=== PATIENT | male | born 1980 | race Caucasian/White ===

== ENCOUNTER 2019-01-09 13:14 | Emergency (ER) | payer SELFPAY ==
[~2019-01-09] VITALS: Ht 175.3 cm; Wt 99.5 kg
[2019-01-09 13:17] VITALS: Ht 175.3 cm; Wt 99.5 kg
[2019-01-09] MEDS ORDERED: SOD CHLORIDE 0.9% 1,000 ML IV ONE (13:30)
[2019-01-09] MEDS ORDERED: DIPHTH/TET/ACEL PERTUSS (ADULT) 0.5 ML VIAL IM* ONE (13:30)
[2019-01-09 20:30] VITALS: BP 128/88; PULSE 91; RESP 18
[2019-01-09] MEDS ORDERED: IBUPROFEN 200 MG TAB ONE (20:53)
[2019-01-09] MEDS ORDERED: IBUPROFEN 200 MG TAB PO ONE (21:00)
== END 2019-01-09 20:59 | disposition home or self-care (01) ==
LOC: E/R 13:14
DX: S02.2XXA Fracture of nasal bones, initial encounter for closed fracture (principal); S01.81XA Laceration without foreign body of other part of head, initial encounter; F15.10 Other stimulant abuse, uncomplicated; R40.2132 Coma scale, eyes open, to sound, at arrival to emergency department; R40.2362 Coma scale, best motor response, obeys commands, at arrival to emergency department; R40.2252 Coma scale, best verbal response, oriented, at arrival to emergency department; Z23 Encounter for immunization; Y09 Assault by unspecified means
CPT/HCPCS: 36415; 70450; 70486; 72125; 80053; 80307; 81003; 82962; 85025; 90471; 90715; 99285; J7030